=== PATIENT | male | born 1995 | race Hispanic/Latino ===

== ENCOUNTER 2019-06-05 07:33 | Emergency (ER) | payer OTHER ==
[2019-06-05 08:24] LABS: #Basophils 0.1 thou/uL (0.0-0.2); #Eosinphils 0.1 thou/uL (0.0-0.7); #Lymphocytes 2.7 thou/uL (1.20-3.40); #Monocytes 0.8 thou/uL (0.11-0.59); #Neutrophils 9.2 thou/uL (1.40-6.50); %Basophils 0.6 % (0.0-1.0); %Eosinophils 1.1 % (0.0-10.0); %Lymphocytes 21.1 % (21.0-51.0); %Monocytes 6.4 % (0.0-10.0); %Neutrophils 70.8 % (42.0-75.0); Hemoglobin 16.9 g/dL (14.0-18.0); Mean Corpuscular HGB CONC 33.6 g/dL (32.0-36.0); Mean Corpuscular Hemoglobin 30.7 pg (27.0-31.0); Mean Corpuscular Volume 91.4 fL (78.0-98.0); Mean Platelet Volume 8.7 fL (7.4-10.4); Platelet Count 226 thou/uL (130-400); RBC Distribution Width 11.1 % (11.5-14.5)
[2019-06-05 08:40] LABS: ALT (SGPT) 13 U/L (8-55); AST (SGOT) 12 U/L (5-34); Albumin 4.1 g/dL (3.5-5.0); Alkaline Phosphatase 61 U/L (40-150); Anion Gap 13 mmol/L (10-20); BUN (Urea Nitrogen) 11 mg/dL (8.9-20.6); Bilirubin, Total 0.8 mg/dL (0.2-1.2); CK (CPK) 281 U/L (30-200); Calc. Creatinine Clearance 0 mL/min (70-130); Calcium 9.9 mg/dL (7.8-10.44); Carbon Dioxide 24 mmol/L (22-29); Chloride 103 mmol/L (98-107); Estimated GFR-MDRD Greater than 90; Globulin 2.2 g/dL (2.4-3.5); Glucose 94 mg/dL (70-105); Protein, Total 6.3 g/dL (6.0-8.3); Sodium 137 mmol/L (136-145)
[2019-06-05 08:45] LABS: Potassium 2.9 mmol/L (3.5-5.1)
[2019-06-05] MEDS ORDERED: Pot Chloride/Pot Bicarb/Cit Ac 25 mEq Effervescent Tablet ONE (09:01)
[2019-06-05 09:03] LABS: Bacteria/HPF None Seen HPF (None Seen); Bilirubin Negative (Negative); Blood, Urine Negative (Negative); Clarity Clear (Clear); Glucose, Urine (Dipstick) Normal (Negative); Leukocyte Negative Leu/uL (Negative); Nitrite Negative (Negative); Protein, Urine (Dipstick) 30 mg/dL (Neg-Trace); RBC/HPF 0-3 HPF (0-3); Squamous Epithelial 0-3 HPF (0-3); WBC/HPF 0-3 HPF (0-3)
== END 2019-06-05 10:38 | disposition home or self-care (01) ==
LOC: ERS 07:33
DX: E86.0 Dehydration (principal); E87.6 Hypokalemia
CPT/HCPCS: 80053; 81003; 81015; 82550; 85025; 93005; 96360; 96361

== ENCOUNTER 2019-06-25 17:50 | Emergency (ER) | payer OTHER ==
--- NOTE | 2019-06-25 18:28 | RAD ---
RIGHT HAND RADIOGRAPHS THREE VIEWS: 06/25/2019 PROVIDED CLINICAL HISTORY: Thumb pain status post injury FINDINGS: Transversely oriented, not significantly displaced fracture involves the proximal aspects of the thum b distal phalanx without apparent intraarticular extension. No additional fracture is evident. Join t spaces appear preserved. IMPRESSION: Thumb distal phalangeal fracture, as above. POS: MARU
[2019-06-25] MEDS ORDERED: Ibuprofen 800 MG TAB ONE (18:57)
[2019-06-25] MEDS ORDERED: HYDROcodone/Acetaminophen 10/325 mg Tablet ONE (20:09)
[2019-06-25] MEDS ORDERED: CEFAZOLIN 1 GM VIAL ONE (20:09)
[2019-06-25] MEDS ORDERED: Sterile Water 10 ML ONE (20:11)
[2019-06-25] MEDS ORDERED: Triple Antibiotic Oint 1 GM Packet ONE (20:15)
== END 2019-06-25 21:00 | disposition home or self-care (01) ==
LOC: ERS 17:50
DX: S62.521B Displaced fracture of distal phalanx of right thumb, initial encounter for open fracture (principal); F17.210 Nicotine dependence, cigarettes, uncomplicated; W22.8XXA Striking against or struck by other objects, initial encounter
CPT/HCPCS: 29125; 96372; J0690

== ENCOUNTER → 2019-09-01 | Emergency (ER) | payer OTHER | LOC: ERS 01:26 | DX: Z53.21 Procedure and treatment not carried out due to patient leaving prior to being seen by health care provider (principal) ==

== ENCOUNTER 2020-01-04 12:27 | Emergency (ER) | payer OTHER | END 2020-01-04 13:08 | disposition left against medical advice (07) | LOC: ERS 12:27 | DX: Z53.21 Procedure and treatment not carried out due to patient leaving prior to being seen by health care provider (principal) ==

== ENCOUNTER 2020-07-06 13:26 | Observation (INO) | payer OTHER ==
[~2020-07-06 13:26] MED LIST: Dexamethasone 10 MG/ML VIAL ONE; EPHEDRINE 25 MG/5 ML SYRINGE ONE; Lidocaine 1% PF 5 ML VIAL ONE; Ondansetron PF 4 MG/2 ML Vial ONE; PROPOFOL 200 MG/20 ML VIAL ONE
[2020-07-06] MEDS ORDERED: Albuterol Sulfate 2.5 mg/3 ml Neb ONE (15:51)
[2020-07-06] MEDS ORDERED: Fentanyl 100 MCG/2 ML VIAL ONE ×6 (15:51→21:09)
[2020-07-06] MEDS ORDERED: Bacitracin Zinc Ointment 30 gm TUBE ONE (15:52)
[2020-07-06] MEDS ORDERED: Bupivacaine PF 0.5% 30 ML VIAL ONE (15:52)
[2020-07-06] MEDS ORDERED: Albuterol Sulfate 2.5 mg/3 ml Neb NEB SCH (16:00)
[2020-07-06] MEDS ORDERED: Promethazine HCl 25 MG/ML VIAL SLOW IVP PRN (20:05)
[2020-07-06] MEDS ORDERED: Ondansetron HCl/PF 4 MG/2 ML Vial IVP PRN (20:05)
[2020-07-06] MEDS ORDERED: Promethazine HCl 25 MG/ML VIAL IM PRN (20:05)
[2020-07-06] MEDS ORDERED: Promethazine HCl 25 MG/ML VIAL ONE (20:22)
[2020-07-06] MEDS ORDERED: Acetaminophen 325 MG TAB PO PRN (20:38)
[2020-07-06] MEDS ORDERED: Ondansetron PF 4 MG/2 ML Vial IV PRN (20:38)
[2020-07-06] MEDS ORDERED: traMADol HCl 50 MG TAB PO PRN (20:38)
[2020-07-06] MEDS ORDERED: Bisacodyl 10 MG SUPP PR PRN (20:38)
[2020-07-06] MEDS ORDERED: Fentanyl 100 MCG/2 ML VIAL SLOW IVP PRN (20:38)
[2020-07-06] MEDS ORDERED: Morphine 2 MG/ML VIAL SLOW IVP PRN (20:38)
[2020-07-06] MEDS ORDERED: Meperidine HCl/PF 25 MG/ML VIAL IM PRN (20:41)
[2020-07-06] MEDS ORDERED: Communication Order-Pharmacy FS PRN (20:45)
[2020-07-06] MEDS ORDERED: Sodium Chloride 0.9% 100 ML IV SCH (20:45)
[2020-07-06] MEDS ORDERED: Vancomycin 1 GM in Premix Bag 1 BAG IVPB SCH (21:00)
[2020-07-06] MEDS ORDERED: Albuterol 200 PUFF (6.7GM INHALER) INH PRN (21:33)
[2020-07-06] MEDS ORDERED: TETANUS AND DIPHTHERIA TOX/PF 0.5 ML DISP.SYRIN IM SCH (22:00)
[2020-07-06] MEDS: HYDROcodone/Acetaminophen 5/325 mg Tablet PO PRN (22:45)
[2020-07-06] MEDS: Aspirin 81 mg Enteric Coated Tablet PO SCH (22:45)
[2020-07-06] MEDS: Ketorolac Tromethamine 30 MG/ML VIAL IVP PRN (22:46)
[2020-07-06] MEDS: Sodium Chloride 0.9% 1,000 ML IV SCH (22:49)
[2020-07-07 01:28] VITALS: BMI 33.2
[2020-07-07] MEDS: Vancomycin 1.5 GRAM/300 ML BAG 1.5 GM in Premix Bag 1 BAG IVPB SCH ×3 (02:58→18:00)
[2020-07-07] MEDS: HYDROcodone/Acetaminophen 5/325 mg Tablet PO PRN ×3 (05:39→16:39)
[2020-07-07] MEDS: Ketorolac Tromethamine 30 MG/ML VIAL IVP PRN ×3 (05:56→18:04)
[2020-07-07] MEDS: Sodium Chloride 0.9% 1,000 ML IV SCH ×2 (07:21→18:16)
--- NOTE | 2020-07-07 08:27 | RAD ---
16 FLUOROSCOPIC SPOT IMAGES OF OPEN REDUCTION AND INTERNAL FIXATION OF RIGHT METACARPAL: Date: 07/06/2020 COMPARISON: Prior exam dated 07/01/2020. FINDINGS: Since the comparison examination, there has been open reduction and internal fixation of the long and ring finger metacarpal shaft fractures. The comminuted fracture involving the small finger base has been reduced and percutaneously pinned. Fracture alignment is near anatomic. The instrumentation proj ects in the expected position. Total fluoroscopic time was 2 minutes and 10 seconds. Total exposure was 1.45 milligray. IMPRESSION: Interval open reduction and internal fixation of long finger, ring finger, and small finger metacarpa l fractures. POS: BH
[2020-07-07] MEDS: Aspirin 81 mg Enteric Coated Tablet PO SCH (12:08)
[2020-07-07 20:54] VITALS: BP 130/68; TEMP 98.5
--- NOTE | 2020-07-08 13:35 | OP ---
DATE OF PROCEDURE: 07/06/2020 PREOPERATIVE DIAGNOSES: 1. Right small finger carpometacarpal joint dislocation. 2. Right small finger proximal metacarpal intra-articular fracture with displacement. 3. Right ring finger metacarpal fracture with displacement, midshaft. 4. Right middle finger intra-articular distal third/neck fracture, displaced. POSTOPERATIVE DIAGNOSES: 1. Right small finger carpometacarpal joint dislocation. 2. Right small finger proximal metacarpal intra-articular fracture with displacement. 3. Right ring finger metacarpal fracture with displacement, midshaft. 4. Right middle finger intra-articular distal third/neck fracture, displaced. PROCEDURES PERFORMED: 1. Open reduction and internal fixation of carpometacarpal dislocation. 2. Open reduction and internal fixation proximal aspect, intra-articular, small finger metacarpal fracture. 3. Open reduction and internal fixation ring finger right shaft fracture. 4. Open reduction and internal fixation head and neck fracture, distal aspect, middle finger metacarpal. TOURNIQUET TIME: 2 hours. ESTIMATED BLOOD LOSS: Less than or equal to 20 mL. COMPLICATIONS: None. C-ARM USED: Yes. INDICATIONS FOR PROCEDURE: The patient with fracture, now almost five or six days old at time of operation from time of injury. Swelling was minimal. DESCRIPTION OF PROCEDURE: After successful general endotracheal anesthesia, the limb was prepped and draped. We outlined the incision with a slightly more ulnar than midline small finger metacarpal base fracture over the joint, and a wide zigzag incision line between the ring and the middle finger metacarpal, both of these through the same incision. We first approached the metacarpal fracture at the base of small finger because it was most comminuted. We made incision with arthrotomy. We visualized superficial ulnar nerve branches as well as extensor tendon and went in the interval between these two. We exposed the joint line and the capsule. Tried to observe as much as possible. We then here saw the fracture was markedly impacted so we disimpacted the fragments, and then bone grafted the area where they had subsided. Once this was done, we then placed 2 K-wires, one oblique from distal to proximal across the fracture and one transverse to hold the condylar elements together where we had just placed the subcondylar bone graft. Then, once this was now moving as one with the multiple K-wire fixation, we then placed a K-wire, 0.45, across the joint into the small finger metacarpal to maintain height, length, and stability. We then made our incision between the two metacarpals and then approached the ring finger metacarpal first. We further displaced the already fracture, irrigated, curetted out the ends, then reduced it provisionally with a 7-hole plate and clamp. First, we attempted to use a 5-hole plate with a clamp and initially found that the patient did not have good enough construct with some angulation, so we removed this, redrilled the distal holes with a 7-hole plate bypassing the other two holes from the 4-hole plate distally and we had anatomic position of fracture and no malrotation. We then approached the middle finger through the same incision, where the fracture was oblique and dorsally, more proximally than palmarly where it was distal and went into the head of the joint. We made arthrotomy, irrigated the joint, removed some blood and then performed an open reduction and internal fixation using the 1.5 variable angle set while all other screws in place were from the 2.0 set. The patient then had tourniquet deflated. We obtained hemostasis. We closed the interossei back to each other over the bone with interrupted 2-0 Vicryl undyed. We did close the subcutaneous with interrupted 4-0 Monocryl and then, we used 4-0 nylon to close the skin with interrupted simple pattern. Bulky dressing was applied to all wounds, the patient left the operating room without evidence of anesthetic or operative complication. Job ID: [id number]
== END 2020-07-07 20:20 | disposition home or self-care (01) ==
LOC: SDC 13:26 → SURG B 20:42
PROVIDERS: ADMIT Orthopaedic Surgery Hand Surgery; ATTEND Orthopaedic Surgery Hand Surgery
PROC: 0PSP04Z Reposition Right Metacarpal with Internal Fixation Device, Open Approach (ICD-10-PCS; principal; 2020-07-06)
PROC: 0PSP04Z Reposition Right Metacarpal with Internal Fixation Device, Open Approach (ICD-10-PCS; 2020-07-06)
PROC: 0PSP04Z Reposition Right Metacarpal with Internal Fixation Device, Open Approach (ICD-10-PCS; 2020-07-06)
PROC: 0PUP0KZ Supplement Right Metacarpal with Nonautologous Tissue Substitute, Open Approach (ICD-10-PCS; 2020-07-06)
DX: S62.332A Displaced fracture of neck of third metacarpal bone, right hand, initial encounter for closed fracture (principal); S62.324A Displaced fracture of shaft of fourth metacarpal bone, right hand, initial encounter for closed fracture; S62.396A Other fracture of fifth metacarpal bone, right hand, initial encounter for closed fracture; S63.054A Dislocation of other carpometacarpal joint of right hand, initial encounter; J45.909 Unspecified asthma, uncomplicated; F17.210 Nicotine dependence, cigarettes, uncomplicated; Z98.890 Other specified postprocedural states; W19.XXXA Unspecified fall, initial encounter
CPT/HCPCS: 76000; 96365; 96366; 96375; 96376; C1713; G0378; J0690; J1100; J1885; J2405; J2550; J2704; J3010; J3370; J7611; S0020

== ENCOUNTER 2020-07-23 10:11 | Outpatient (CLI) | payer OTHER ==
[2020-07-24 12:36] LABS: SARS-CoV-2 MS2 Positive; SARS-CoV-2 N Gene Negative; SARS-CoV-2 S Gene Negative; SARS-CoV-2 by NAA Not Detected (NotDetected); SARS-CoV-2 orf1ab Negative
== END 2020-07-23 10:12 | disposition home or self-care (01) ==
LOC: LABBT 10:11
PROVIDERS: ATTEND Orthopaedic Surgery Hand Surgery
DX: T84.84XA Pain due to internal orthopedic prosthetic devices, implants and grafts, initial encounter (principal); Z20.828 Contact with and (suspected) exposure to other viral communicable diseases
CPT/HCPCS: 87635; U0003

== ENCOUNTER 2020-10-28 06:42 | Outpatient (CLI) | payer OTHER ==
[2020-10-29 02:20] LABS: SARS-CoV-2 MS2 Positive; SARS-CoV-2 N Gene Negative; SARS-CoV-2 S Gene Negative; SARS-CoV-2 by NAA Not Detected (NotDetected); SARS-CoV-2 orf1ab Negative
== END 2020-10-28 06:43 | disposition home or self-care (01) ==
LOC: LABBT 06:42
PROVIDERS: ATTEND Orthopaedic Surgery Hand Surgery
DX: Z01.812 Encounter for preprocedural laboratory examination (principal); T84.84XA Pain due to internal orthopedic prosthetic devices, implants and grafts, initial encounter; Z20.828 Contact with and (suspected) exposure to other viral communicable diseases
CPT/HCPCS: 87635; U0003

== ENCOUNTER 2020-11-02 13:02 | Day surgery (SDC) | payer OTHER ==
[2020-10-30 14:22] VITALS: BMI 32.0
[~2020-11-02 13:02] MED LIST changes: -Dexamethasone 10 MG/ML VIAL ONE; +Dexamethasone 20 MG/5 ML VIAL ONE; -EPHEDRINE 25 MG/5 ML SYRINGE ONE
[2020-11-02] MEDS ORDERED: Fentanyl 100 MCG/2 ML VIAL ONE (14:51)
[2020-11-02] MEDS ORDERED: Midazolam HCl 2 mg/2 ml Vial ONE (14:51)
[2020-11-02] MEDS ORDERED: Bacitracin Zinc Ointment 30 gm TUBE ONE (14:52)
[2020-11-02] MEDS ORDERED: Bupivacaine PF 0.5% 30 ML VIAL ONE (14:52)
[2020-11-02] MEDS ORDERED: Ketorolac Tromethamine 30 MG/ML VIAL ONE (16:06)
--- NOTE | 2020-11-02 20:14 | RAD ---
EXAM: 2 views of the right hand COMPARISON: 07/06/2020 HISTORY: Hand pain. Hardware in the right hand FINDINGS: 2 limited intraoperative fluoroscopic views of the hand shows no evidence of acute fracture or dislocation. Plates and screws are seen in the third and fourth metacarpals. The previously seen K wires have been removed. No degenerative changes are seen. No soft tissue swelling is present. IMPRESSION: Postsurgical changes as above
--- NOTE | 2020-11-03 06:48 | OP ---
DATE OF PROCEDURE: 11/02/2020 COMPLICATIONS: None. TOURNIQUET TIME: 5 minutes. ESTIMATED BLOOD LOSS: 5 mL. PREOPERATIVE DIAGNOSIS: Painful right fifth CMC wire after previous CMC dislocation. POSTOPERATIVE DIAGNOSIS: Painful right fifth CMC wire after previous CMC dislocation. FINDINGS: CMC stable after wire removal. PROCEDURES PERFORMED: 1. Removal of deep small finger hamate wire, open procedure. 2. C-arm supervision. SPECIMEN REMOVED: Just the wire. No other anatomic specimen. DESCRIPTION OF PROCEDURE: After successful general endotracheal anesthesia, the limb was prepped and draped. The patient then had the right upper extremity identified with time-out as the site. X-ray confirmed with C-arm. We gave the patient 10 mL of 0.5% Marcaine as a field block. Waited 5 minutes and then exsanguinated the limb. We then inflated the tourniquet to 250 mmHg pressure. C-arm brought to the field, identified the painful deep wire, which crossed from the ulna, small finger, approximately 1 cm from the joint line into the radial side of hamate. We identified the wire, made incision over the wire of 5 mm, dissected down until we could actually feel the wire. We used a blunt dissection, freed it from the underlying soft tissue and then removed the wire with a suture handle. The patient then had a tourniquet deflated, hemostasis obtained. We then closed the wound with 4-0 nylon interrupted simple pattern. Bulky dressing applied. The patient left the operating room without evidence of anesthetic or operative complication. Job ID: [id number]
== END 2020-11-02 17:20 | disposition home or self-care (01) ==
LOC: SDC 13:02
PROVIDERS: ATTEND Orthopaedic Surgery Hand Surgery
PROC: 0LPX0JZ Removal of Synthetic Substitute from Upper Tendon, Open Approach (ICD-10-PCS; principal; 2020-11-02)
DX: T84.84XA Pain due to internal orthopedic prosthetic devices, implants and grafts, initial encounter (principal); F17.210 Nicotine dependence, cigarettes, uncomplicated; J45.909 Unspecified asthma, uncomplicated
CPT/HCPCS: 76000; J0690; J1100; J1885; J2250; J2405; J2704; J3010; S0020

== ENCOUNTER 2021-05-12 11:02 | Emergency (ER) | payer OTHER | END 2021-05-12 13:56 | disposition left against medical advice (07) | LOC: ERS 11:02 | DX: Z53.21 Procedure and treatment not carried out due to patient leaving prior to being seen by health care provider (principal) ==

== ENCOUNTER 2021-11-12 07:06 | Emergency (ER) | payer SELFPAY, BC ==
[2021-11-12] MEDS ORDERED: Proparacaine 0.5% Opth 15 ML BOT ONE (08:09)
[2021-11-12] MEDS ORDERED: Fluorescein Opthalmic Strip ONE (08:09)
== END 2021-11-12 09:02 | disposition home or self-care (01) ==
LOC: ERS 07:06
DX: S05.02XA Injury of conjunctiva and corneal abrasion without foreign body, left eye, initial encounter (principal); F17.210 Nicotine dependence, cigarettes, uncomplicated
CPT/HCPCS: 99283

== ENCOUNTER 2022-01-05 11:35 | Emergency (ER) | payer BC ==
[2022-01-05] MEDS ORDERED: Morphine 4 MG/ML VIAL ONE (12:21)
[2022-01-05] MEDS ORDERED: Ketamine 50 MG/ML (10ML VIAL) ONE (12:33)
[2022-01-05] MEDS ORDERED: Cyclobenzaprine 10 MG TAB ONE (13:35)
== END 2022-01-05 13:51 | disposition home or self-care (01) ==
LOC: ERS 11:35
DX: S43.014A Anterior dislocation of right humerus, initial encounter (principal); W22.8XXA Striking against or struck by other objects, initial encounter; Y99.0 Civilian activity done for income or pay; F17.290 Nicotine dependence, other tobacco product, uncomplicated
CPT/HCPCS: 23650; 96365; 99156; J2270

== ENCOUNTER 2022-02-04 23:57 | Emergency (ER) | payer BC ==
[2022-02-05] MEDS ORDERED: Famotidine/PF 20 mg/2ml Vial ONE (00:22)
[2022-02-05] MEDS ORDERED: methylPREDNISolone Sod Succ/PF 125 MG/2 ML VIAL ONE (00:22)
[2022-02-05] MEDS ORDERED: diphenhydrAMINE 50 MG/ML VIAL ONE (00:22)
[2022-02-05] MEDS ORDERED: Sterile Water 10 ML ONE (00:24)
== END 2022-02-05 02:17 | disposition home or self-care (01) ==
LOC: ERS 23:57
DX: T78.40XA Allergy, unspecified, initial encounter (principal); F17.290 Nicotine dependence, other tobacco product, uncomplicated
CPT/HCPCS: 96374; 96375; J1200; J2930; S0028

== ENCOUNTER 2022-03-07 15:22 | Emergency (ER) | payer BC ==
[2022-03-07] MEDS ORDERED: Ketamine 50 MG/ML (10ML VIAL) ONE (17:46)
[2022-03-07] MEDS ORDERED: Fentanyl 100 MCG/2 ML VIAL ONE ×2 (17:47→17:54)
== END 2022-03-07 19:31 | disposition home or self-care (01) ==
LOC: ERS 15:22
DX: S43.014A Anterior dislocation of right humerus, initial encounter (principal); F17.210 Nicotine dependence, cigarettes, uncomplicated; F17.290 Nicotine dependence, other tobacco product, uncomplicated; X50.9XXA Other and unspecified overexertion or strenuous movements or postures, initial encounter; Y93.64 Activity, baseball
CPT/HCPCS: 23650; 99152; J3010

== ENCOUNTER 2022-05-26 17:22 | Emergency (ER) | payer BC, SELFPAY | END 2022-05-26 20:45 | disposition home or self-care (01) | LOC: ERS 17:22 | DX: S43.014A Anterior dislocation of right humerus, initial encounter (principal); F17.200 Nicotine dependence, unspecified, uncomplicated; X50.9XXA Other and unspecified overexertion or strenuous movements or postures, initial encounter; Y93.64 Activity, baseball | CPT/HCPCS: 23650 ==